=== PATIENT | female | born 1980 ===

== ENCOUNTER 2024-05-01 05:15 | Inpatient (IN) | payer OTHER ==
[2024-04-25 08:38] LABS: HEMATOCRIT 38.6 % (36.0-45.00); HEMOGLOBIN 13.3 g/dL (12.0-15.00); MEAN CELL VOLUME 82.7 fL (80.00-100.00); MEAN CORPUSCULAR HEMOGLOBIN 28.5 pg (27.00-32.0); MEAN CORPUSCULAR HGB CONC 34.5 g/dl (32.0-36.0); PLATELET COUNT 243 K/uL (150-450); RED BLOOD COUNT 4.66 M/uL (4.00-6.00); RED CELL DISTRIBUTION WIDTH 12.9 % (11.5-14.5)
[2024-04-25 08:39] LABS: PH,URINE 6.5 (5.0-8.0); URINE APPEARANCE Cloudy; URINE BILIRRUBIN Negative (NEGATIVE); URINE BLOOD Negative; URINE COLOR Yellow; URINE GLUCOSE Negative (NEGATIVE); URINE KETONE Negative (NEGATIVE); URINE LEUKOCYTE Moderate; URINE NITRATE Negative; URINE PROTEIN Negative (NEGATIVE); URINE UROBILINOGEN 0.2 E.U./dl
[2024-04-25 08:45] LABS: URINE BACTERIA 9819.1 uL (0.0-1933); URINE EPITHELIAL CELLS 87.3 uL (0.0-38.8); URINE RBC 119.7 uL (0.0-20.8); URINE WBC 45.1 uL (0.0-23.2)
[2024-04-25 09:00] LABS: URINE CAST 0.61 uL (0.0-1.40)
[2024-04-25 09:17] LABS: PARTIAL THROMBOPLASTIN TIME 34.7 SECONDS (22.0-34.0); PROTHROMBIN TIME 10.9 SECONDS (9.0-11.5)
[2024-04-25 09:22] LABS: ALBUMIN 3.7 gm/dL (3.4-5.0); BILIRUBIN TOTAL 0.43 mg/dL (0.3-1.2); CALCIUM 9.5 mg/dL (8.5-10.1); CREATININE SERUM 0.39 mg/dL (0.55-1.02); GFR 177.72; GLOBULINA 3.4 G/DL (2.4-3.5); POTASSIUM 4.23 mEq/L (3.5-5.1); TOTAL PROTEIN 7.1 gm/dL (6.4-8.2)
[~2024-05-01] VITALS: Ht 175.3 cm; Wt 76.7 kg
[~2024-05-01 05:15] MED LIST: PROPRANOLOL; PROPYLTHIOURACIL 50 MG
[2024-05-01] MEDS ORDERED: ONDANSETRON HCL 2 MG/ML VIAL IV PRN (07:15)
[2024-05-01] MEDS ORDERED: ENALAPRILAT DIHYDRATE 1.25 MG/ML VIAL IV PRN (07:15)
[2024-05-01] MEDS ORDERED: CEFAZOLIN SODIUM 1,000 MG VIAL IV ONE (08:15)
[2024-05-01] MEDS ORDERED: DEXAMETHASONE 4 MG TABLET PO ONE (08:15)
[2024-05-01] MEDS ORDERED: DEXAMETHASONE SODIUM PHOSPHATE 4 MG/ML VIAL IV ONE (08:15)
[2024-05-01] MEDS ORDERED: ACETAMINOPHEN 500 MG GEL..CAP PO SCH (09:00)
[2024-05-01] MEDS ORDERED: TRAMADOL HCL 50 MG TABLET PO SCH (09:00)
[2024-05-01] MEDS ORDERED: Calcium Carbonate 1 TAB TABLET PO SCH (09:00)
[2024-05-01] MEDS ORDERED: LEVOTHYROXINE SODIUM 112 MCG TABLET PO SCH (09:00)
[2024-05-01] MEDS ORDERED: MORPHINE SULFATE 4 MG/ML VIAL IV ONE ×2 (09:25→09:55)
[2024-05-01] MEDS ORDERED: CYCLOBENZAPRINE HCL 5 MG TABLET PO SCH (17:00)
[2024-05-01] MEDS ORDERED: PANTOPRAZOLE SODIUM 40 MG/VIAL VIAL IV PUSH SCH (21:00)
[2024-05-01] MEDS ORDERED: CALCITRIOL 0.5 MCG CAPSULE PO SCH (23:02)
[2024-05-01] MEDS ORDERED: CALCITRIOL 0.5 MCG CAPSULE PO ONE (23:15)
[2024-05-02] VITALS: BP 127/61; O2SAT 95
[2024-05-02] MEDS ORDERED: LEVOTHYROXINE SODIUM 112 MCG TABLET PO SCH (06:00)
[2024-05-02 08:05] VITALS: BP 136/67; O2SAT 96
== END 2024-05-02 13:39 | disposition home or self-care (01) | DRG 627 ==
LOC: CIR.AMB 05:15 → O/R 16:22 → SURG 16:33
PROVIDERS: ADMIT Surgery; ATTEND Surgery
PROC: 0GTK0ZZ Resection of Thyroid Gland, Open Approach (ICD-10-PCS; principal; 2024-05-01 07:00)
DX: E05.00 Thyrotoxicosis with diffuse goiter without thyrotoxic crisis or storm (principal); Z20.822 Contact with and (suspected) exposure to COVID-19